=== PATIENT | male | born 1950 ===

== ENCOUNTER 2017-11-03 07:02 | Day surgery (SDC) | payer OTHER ==
[~2017-11-03] VITALS: Ht 162.6 cm; Wt 75.1 kg
[~2017-11-03 07:02] MED LIST: ACET325 PO; CEFU500 PO; IBUP200 PO; OXYACE5T PO; [UNRECOGNIZED DRUG - OTHER] PO
[2017-11-03] MEDS ORDERED: Hair, Skin & N1 EACH (07:37)
== END 2017-11-03 09:38 | disposition home or self-care (01) ==
LOC: ORSCSDS 07:02
PROVIDERS: Ophthalmology
PROC: 085J3ZZ Destruction of Right Lens, Percutaneous Approach (ICD-10-PCS; principal; 2017-11-03 08:30)
DX: H25.11 Age-related nuclear cataract, right eye (principal); H21.81 Floppy iris syndrome
CPT/HCPCS: J2250; J3010; J7040; J7120; V2632

== ENCOUNTER 2022-01-22 10:01 | Day surgery (SDC) | payer OTHER ==
[~2022-01-22] VITALS: Ht 160 cm; Wt 74.0 kg
[~2022-01-22 10:01] MED LIST changes: +Hair, Skin & N1 EACH; +TAMS.4ER PO
--- NOTE | 2022-01-22 11:30 | NUR ---
01/22/22 1130 Mariam Menjivar History, Chart, Medications and Allergies reviewed before start of procedure. Patient confirms NPO status and agrees with scheduled surgery. 3-LEAD EKG REVIEWED WITH PHYSICIAN PRIOR TO START OF PROCEDURE. MONITOR INTACT WITH CONTINUOUS PULSE OXIMETRY AND INTERMITTENT BP. PATIENT DETERMINED TO BE ASA APPROPRIATE FOR PROPOFOL SEDATION PRIOR TO START OF PROCEDURE BY DR. [facility]IS[facility]. MONITOR EQUIPMENT CHECKING FOR WORKING CONDITION.
--- NOTE | 2022-01-22 12:28 | NUR ---
Patient up to Ambulate independently. Gait steady. VSS. PT VERBALIZED NO COMPLAINTS. Discharge instructions reviewed with patient. Patient verbalizes understanding. Copy given to patient to take home. Patient States Post-Procedure ride home has been arranged. Discharged via wheelchair to private car for ride home.
== END 2022-01-22 12:23 | disposition home or self-care (01) ==
LOC: ORSCMMR 10:01 → ORD 11:00 → ORSCMMR 12:23
PROVIDERS: Internal Medicine Gastroenterology
PROC: 0DBM8ZX Excision of Descending Colon, Via Natural or Artificial Opening Endoscopic, Diagnostic (ICD-10-PCS; principal; 2022-01-22 11:00)
DX: R19.5 Other fecal abnormalities (principal); R19.35 Periumbilic abdominal rigidity; D12.4 Benign neoplasm of descending colon; K57.30 Diverticulosis of large intestine without perforation or abscess without bleeding; K64.8 Other hemorrhoids
CPT/HCPCS: 88305; J2704; J7120